=== PATIENT | female | born 1950 | race African-American/Black ===

== ENCOUNTER → 2021-05-12 | Outpatient (CLI) | payer MEDICARE ==
--- NOTE | 2021-05-12 14:09 | US ---
EXAMINATION TYPE: US venous doppler duplex LE DATE OF EXAM: 05/12/2021 12:41 PM COMPARISON: NONE CLINICAL HISTORY: M79.89 leg swelling. feet swelling SIDE PERFORMED: Bilateral TECHNIQUE: The lower extremity deep venous system is examined utilizing real time linear array sonog corby with graded compression, doppler sonography and color-flow sonography. VESSELS IMAGED: Common Femoral Vein Deep Femoral Vein Greater Saphenous Vein * Femoral Vein Popliteal Vein Small Saphenous Vein * Proximal Calf Veins (* superficial vessels) Right Leg: Negative for DVT Left Leg: Negative for DVT IMPRESSION: No evidence for DVT at this time.
== END | disposition home or self-care (01) ==
LOC: RADUSWWP 11:58
PROVIDERS: ATTEND Family Medicine
DX: M79.89 Other specified soft tissue disorders (principal)
CPT/HCPCS: 93970

== ENCOUNTER → 2022-05-15 | Outpatient (CLI) | payer MEDICARE, OTHER ==
--- NOTE | 2022-05-15 11:01 | US ---
EXAMINATION TYPE: US thyroid st tissue head/neck DATE OF EXAM: 05/15/2022 COMPARISON: NONE CLINICAL HISTORY: R13.13 PHARYNGEAL DYSPHAGIA. Dysphagia GLAND SIZE: Right Lobe: 3.9 x 1.7 x 1.8cm Overall Parenchyma: homogenous Left Lobe: 3.8 x 1.2 x 1.2cm Overall Parenchyma: homogeneous Isthmus Thickness: 0.3cm NODULES RIGHT: # of nodules measured on right: 0 LEFT: # of nodules measured on left: 0 ISTHMUS: # of nodules measured in the isthmus: 0 Bilateral neck scanned, no evidence of lymphadenopathy. IMPRESSION: No evidence of thyroid nodule.
--- NOTE | 2022-05-15 11:02 | US ---
EXAMINATION TYPE: US kidneys/renal and bladder DATE OF EXAM: 05/15/2022 COMPARISON: NONE CLINICAL HISTORY: R32 URINARY INCONTINENCE. EXAM MEASUREMENTS: Right Kidney: 8.6 x 3.5 x 4.5 cm Left Kidney: 8.4 x 4.3 x 4.4 cm Right Kidney: small in size, no evidence of hydronephrosis or nephrolithiasis Left Kidney: small in size, no evidence of hydronephrosis or nephrolithiasis Bladder: appears wnl Bilateral Jets seen: no IMPRESSION: Correlate for chronic medical renal disease
== END | disposition home or self-care (01) ==
LOC: RADUSWWP 09:42
PROVIDERS: ATTEND Family Medicine
DX: R13.13 Dysphagia, pharyngeal phase (principal); R32 Unspecified urinary incontinence
CPT/HCPCS: 76536; 76770

== ENCOUNTER → 2022-05-24 | Outpatient (CLI) | payer MEDICARE, OTHER ==
--- NOTE | 2022-05-26 11:22 | FL ---
EXAMINATION TYPE: FL barium swallow w video DATE OF EXAM: 05/24/2022 COMPARISON: NONE HISTORY: Dysphasia TECHNIQUE: Fluoroscopy. FINDINGS: Fluoroscopic guidance was provided for the procedure performed in conjunction with the [facility] pathology department. Please see complete report forthcoming from the Speech Pathology departmen t. Various consistencies from thin liquid to solids were administered. Fluoroscopy time 1 minute 5 seconds. Number of images: 0. No aspiration or penetration was evident. No significant pooling was observed in the vallecula. There is some hesitancy during the swallowing mechanism. IMPRESSION: 1. Hesitancy during swallowing. 2. No aspiration or penetration evident.
== END | disposition home or self-care (01) ==
LOC: RADUSWWP 09:25
PROVIDERS: ATTEND Family Medicine
DX: R13.13 Dysphagia, pharyngeal phase (principal)
CPT/HCPCS: 74230